=== PATIENT | female | born 1940 | race Caucasian/White ===

== ENCOUNTER 2018-05-30 08:03 | Day surgery (SDC) | payer MEDICARE, OTHER ==
[~2018-05-30] VITALS: Ht 160 cm; Wt 44.5 kg
[~2018-05-30 08:03] MED LIST: MULTI VITAMINS1 TAB PO
[2018-05-30 08:25] VITALS: BP 155/60; PULSE 69; TEMP 97.8
[2018-05-30 11:10] VITALS: BP 137/62; PULSE 74; TEMP 98
--- NOTE | 2018-05-30 11:10 | NUR ---
Patient returns to [facility] via cart, accompanied by Endo ANA Santizo. Bedside report received. RT called for post-procedure breathing treatment. Patient placed on monitoring - VSS and WNL on room air. She is sitting up in bed, alert, awake. She tolerates water well and gag reflex is intact. Offered and receives iced coffee, a muffin, and ice cream. She denies any pain, nausea, or SOB. Family is at the bedside. Dr. Parks speaks with patient and her family. Call light in reach. Will continue to monitor.
[2018-05-30 11:25] VITALS: BP 125/91; PULSE 70
--- NOTE | 2018-05-30 11:25 | NUR ---
VSS and WNL on room air. Tolerating PO well. Denies any pain, nausea, or SOB.
[2018-05-30 11:40] VITALS: BP 135/54; PULSE 71
--- NOTE | 2018-05-30 11:40 | NUR ---
VSS and WNL on room air. Denies any pain, nausea, or need.
--- NOTE | 2018-05-30 12:06 | NUR ---
Discharge criteria has been met. Discharge instructions discussed, denies any questions, and verbalizes understanding. PIV removed with catheter intact and hemostasis achieved. Patient changes to clothing independently. Escorted to exit via wheelchair. Discharged to home with ride in private vehicle at 1206.
== END 2018-05-30 12:06 | disposition home or self-care (01) ==
LOC: SDCO 08:03
DX: C34.12 Malignant neoplasm of upper lobe, left bronchus or lung (principal); J44.9 Chronic obstructive pulmonary disease, unspecified; F17.210 Nicotine dependence, cigarettes, uncomplicated; Z90.710 Acquired absence of both cervix and uterus
CPT/HCPCS: J2704; J7030

== ENCOUNTER 2020-04-30 09:04 | Inpatient (IN) | payer MEDICARE, OTHER ==
[2020-04-30] VITALS (18 sets, daily range): BP systolic 123–197; BP diastolic 59–107; PULSE 76–94; TEMP 98–98.7
[~2020-04-30] VITALS: Ht 160 cm; Wt 48.5 kg
[~2020-04-30 09:04] MED LIST changes: +SYNTHROID0.075 MG/T PO
--- NOTE | 2020-04-30 10:20 | NUR ---
PT WAS TAKEN TO CT IN WHEELCHAIR. PLACED ON TABLE AND MONITORING EQUIPMENT PLACED.
--- NOTE | 2020-04-30 11:40 | NUR ---
CALLED REPORT TO NOAH. PT WAS GIVEN A TOTAL OF 100 MCG F[address]L FOR THE PROCEDURE. PT A/O X4 UPON TRANSPORT. VSS EXCEPT BP WHICH WAS 192/100. THIS INFORMATION WAS GIVEN IN REPORT. PT HAS A HIEMLICK VALVE PLACED. PT INSTRUCTED NOT TO LET ANYONE COVER THE END OF THE VALVE. DRESSING ON THE BACK IS CDI WITH TRANSFER TO CART. TAKEN TO ROOM 325 BY STAFF
--- NOTE | 2020-04-30 18:00 | NUR ---
Patient arrived to floor around noon. Minimal complaints of pain to right chest, no nausea. Dressing to chest tube is C/D/I. Oriented patient to room. Patient is alert and oriented. Explained the plan for her stay. She is eating and drinking without issues. She asked about when she'll leave. Explained they will do another chest x-ray in the morning and decide from there. She's on oxygen at 2l/min at 98%. No other changes at this time. Call light within reach. Turned bed alarm on incase she forgets to call when she gets up.
--- NOTE | 2020-04-30 20:00 | NUR ---
Report received, assumed care for provisioning analyst. Assessment complete. A&Ox3. Denies pain/nausea/shortness of breath. VS remain stable. Hemlich chest tube to right side with CDI dressing. O2@2L/NC. Plan of care discussed for this shift to include pain control/calling for questions/concerns. Verbalizes understanding. States she doesnt want to take off her jeans or shoes-states she will sleep in them. Denies needs. Call light in reach/bed alarm on. Will monitor.
--- NOTE | 2020-05-01 00:15 | NUR ---
Noted to have elevated BP during vitals verification. Re-checked at this time manually by this nurse-132/68. Denies pain/nausea/shortness of breath. Will continue to monitor.
[2020-05-01 00:45] VITALS: BP 132/68
--- NOTE | 2020-05-01 01:03 | NUR ---
Resting eyes closed. No s/s of pain noted. Call light in reach/bed alarm on. Will monitor.
[2020-05-01 04:32] VITALS: BP 150/71; PULSE 72; TEMP 97.9
--- NOTE | 2020-05-01 05:07 | NUR ---
Rested well this shift. Denies pain/nausea/shortness of breath. O2@2L/NC. VS remained stable. PCT did report elevated BPs with DAVID-taken manually and WNL. Hemlich cath to right chest-dressing CDI. Denies needs. Call light in reach. Will monitor.
--- NOTE | 2020-05-01 06:25 | NUR ---
Radiology at bedside for chest x ray.
[2020-05-01 06:31] LABS: BASO % 0.5 % (0.0-2.0); EOS # 0.1 (0.0-0.7); EOS % 1.4 % (0-4.0); GRAN # 3.9 (1.4-6.5); GRAN % 68.2 % (42.2-75.2); HEMATOCRIT 43.3 % (37.0-47.0); HEMOGLOBIN 13.6 g/dl (12.5-16.0); LYMPH % 17.6 % (20.0-51.0); MEAN CELL VOLUME 99 fl (80.0-100.0); MEAN CORPUSCULAR HEMOGLOBIN 31 pg (27.0-31.0); MEAN CORPUSCULAR HGB CONC 31 g/dl (33.0-37.0); MEAN PLATELET VOLUME 9.4 fl (7.4-10.4); MONO # 0.7 (0.1-0.6); MONO % 11.8 % (1.7-9.3); PLATELET COUNT 141 K/mm3 (130-400); RED BLOOD COUNT 4.39 M/mm3 (4.10-5.30); REDCELL DISTRIBUTION WIDTH-CV 13.6 % (11.5-14.5)
[2020-05-01 07:11] LABS: CALCIUM 9.3 mg/dL (8.4-10.2); CREATININE, serum 0.68 (0.52-1.25); POTASSIUM 4.2 mmol/L (3.4-5.0)
[2020-05-01 07:46] VITALS: BP 134/74; PULSE 88; TEMP 98.8
--- NOTE | 2020-05-01 08:30 | NUR ---
Patient is doing well this morning. Denies pain or nausea. The heimlich valve has been turned to off as ordered. She will get a chest x-ray this afternoon to see if we can remove the chest tube. Offered to help patient get cleaned up but she refused. No other changes at this time. Call light within reach.
--- NOTE | 2020-05-01 10:52 | NUR ---
First visit from the breakdown man. No needs right now.
--- NOTE | 2020-05-01 11:41 | NUR ---
SW met with patient to conduct intake evaluation. Patient lives at home by himself in [place]. Patient does not have DPOA and was not interested in the paperwork. Patient does not require assistance with ADLs and does not with with home health. Patient requires no DME. Patient denies problems affording medications. Patient plans to return home with son Zachary providing her with transportation. Patient may discharge home today 05/01. Social work will continue to follow.
[2020-05-01 12:11] VITALS: BP 151/67; PULSE 93; TEMP 98
[2020-05-01 14:57] VITALS: BP 142/83; PULSE 99; TEMP 98.4
--- NOTE | 2020-05-01 15:40 | NUR ---
Patients pneumothorax is back. Opened the valve back up as ordered. She is upset that she can not go home today. Her supper got served at 1500, she is upset about them bringing it so early. Offered again to help her get cleaned up but she refused. Dressing to chest tube is C/D/I. No other changes at this time. Call light within reach.
[2020-05-01 19:21] VITALS: BP 135/59; PULSE 93; TEMP 97.8
--- NOTE | 2020-05-01 20:00 | NUR ---
Pt. sitting up in bed at this time. Pt. is A&OX3, assessment complete. INT to rt. forearm patent. Heimlich valve chest tube to rt. chest CDI. Pt. denies pain or other needs, call light within reach.
--- NOTE | 2020-05-01 22:15 | NUR ---
Report received from ANA Hearn. Assumed care. Resting in bed eyes closed. No s/s of pain/discomfort. Hemlich valve chest tube to right chest. Dressing CDI. Denies pain/nausea/shortness of breath. VS have been stable. Denies needs. Call light in reach. Will monitor.
[2020-05-02] VITALS (7 sets, daily range): BP systolic 131–160; BP diastolic 70–81; PULSE 73–105; TEMP 97.6–98.3
--- NOTE | 2020-05-02 05:44 | NUR ---
Rested well this shift. Denied pain/nausea/shortness of breath. VS remained stable. O2@1.5L/NC-saturations 95%. Dressing to hemlich valve CDI. Denies current needs. Call light in reach. Will Monitor.
--- NOTE | 2020-05-02 09:10 | NUR ---
Patient has been doing well this morning. Plan is to turn off the hemlich valve again and recheck this afternoon with chest x-ray. Attempted againt to get patient to get cleaned up and take her shoes off. She refused. She will clean her dentures but won't get cleaned up. No other changes at this time. Call light within reach.
--- NOTE | 2020-05-02 18:30 | NUR ---
Patient is upset this afternoon about not being able to go home. Her family is dropping some belongings off for her this evening. Hopefully she'll be able to change her clothes than. Valve opened back up around 1430 per orders from hospitalist. No other changes at this time. Call light within reach.
--- NOTE | 2020-05-02 19:45 | NUR ---
Pt. sitting up in bed. Pt. is A&OX3, assessment complete. INT to rt. forearm patent. Pt. refuses to take off shoes or pants. Heimlich valve chest tube to rt. chest, dressing CDI. Pt. denies pain or other needs, call light within reach.
[2020-05-03 03:54] VITALS: BP 162/73; PULSE 62; TEMP 97
[2020-05-03 07:14] VITALS: BP 109/73; PULSE 93; TEMP 97.7
--- NOTE | 2020-05-03 08:00 | NUR ---
Patient in bed resting. Alert and oriented x 3. Heimlich valve to right chest, dressing is CDI. Patient denies pain at this time. Tele in place. Denies further needs at this time.
--- NOTE | 2020-05-03 10:02 | NUR ---
The patient is to discharge back home today, 05/03. SW met with the patient and presented and read the IM form outloud to her. The patient verbalized understanding and gave SW approval to sign the form on her behalf. SW provided her with a copy. The patient has no questions or concerns for SW about returning home. No additional needs at this time.
[2020-05-03 11:24] VITALS: BP 130/67; PULSE 85; TEMP 98.2
--- NOTE | 2020-05-03 11:45 | NUR ---
Discharge education provided to patient. Educated on when to call provider and follow up appointment. Patient educated on how to clamp CT, patient demonstrated back teaching. Educated on Chest XR sunday afternoon and possibility of taking chest tube out on Sunday. Patient verbalizes understanding. Patient educated on caring for chest tube, all questions answered. Contacted Patient daughter, Renea and repeated instructions. INT discontinued, catheter tip intact. Denies further needs at this time.
--- NOTE | 2020-05-03 13:15 | NUR ---
Patient out by wheelchair with surgical staff. No further needs at this time. Dr. Hernandez in to see patient.
== END 2020-05-03 13:15 | disposition home or self-care (01) | DRG 199 ==
LOC: COL.RAD 09:04 → SURG 12:25
PROVIDERS: ADMIT Student in an Organized Health Care Education/Training Program
PROC: 0W9930Z Drainage of Right Pleural Cavity with Drainage Device, Percutaneous Approach (ICD-10-PCS; principal; 2020-04-30)
DX: J95.811 Postprocedural pneumothorax (principal); J96.01 Acute respiratory failure with hypoxia; Y84.8 Other medical procedures as the cause of abnormal reaction of the patient, or of later complication, without mention of misadventure at the time of the procedure; E03.9 Hypothyroidism, unspecified; Z90.710 Acquired absence of both cervix and uterus; Z85.118 Personal history of other malignant neoplasm of bronchus and lung
CPT/HCPCS: OP; 99222-AI; 99232-AI; 99239; G0378; G0379; J3010

== ENCOUNTER 2020-05-21 07:30 | Day surgery (SDC) | payer MEDICARE, OTHER ==
[~2020-05-21] VITALS: Ht 160 cm; Wt 44.5 kg
[2020-05-21 09:05] VITALS: BP 76/49; PULSE 101; TEMP 97.9
[2020-05-21 09:48] VITALS: BP 109/67; PULSE 77; TEMP 98.1
[2020-05-21 10:00] VITALS: BP 92/80; PULSE 81; TEMP 98.1
[2020-05-21 10:15] VITALS: BP 127/63; PULSE 82
--- NOTE | 2020-05-21 13:08 | NUR ---
PT RETURNED FROM PROCEDURE ROOM PER CART. PT A/O. PT TOLERATING FLUIDS. STATES EATING BREAKFAST AT EARLY EDITION WITH SON AFTER DISCHARGE. IV DC'D PER MEME PEREZ. DISCHARGED PATIENT OUT OF THE FACILITY PER WC, SON WAS DRIVING.
[2020-05-21 16:46] VITALS: BP 101/60; PULSE 83
== END 2020-05-21 10:00 | disposition home or self-care (01) ==
LOC: SDCO 07:30
DX: C34.12 Malignant neoplasm of upper lobe, left bronchus or lung (principal); C34.31 Malignant neoplasm of lower lobe, right bronchus or lung; J44.9 Chronic obstructive pulmonary disease, unspecified; Z87.891 Personal history of nicotine dependence; E03.9 Hypothyroidism, unspecified
CPT/HCPCS: J2704; J3010